=== PATIENT | female | born 1990 | race Two or more races ===

== ENCOUNTER 2019-08-26 17:54 | Emergency (ER) | payer MEDICAID ==
[~2019-08-26] VITALS: Ht 157.5 cm; Wt 54.4 kg
[2019-08-26] MEDS ORDERED: NKM (18:06)
[2019-08-26 18:08] VITALS: BP 147/84
[2019-08-26 19:01] LABS: APPEARANCE,URINE CLEAR; BILIRUBIN, URINE NEGATIVE (NEGATIVE); COLOR,URINE PALE YELLOW; GLUCOSE, URINE (UA) NEGATIVE (NEGATIVE); KETONES,URINE NEGATIVE (NEGATIVE); LEUKOCYTE ESTERASE ,URINE 2+ (NEGATIVE); NITRITE,URINE NEGATIVE (NEGATIVE); PH,URINE 7 (4.5-8.0); PROTEIN,URINE NEGATIVE (NEGATIVE); UROBILINOGEN,URINE NORMAL MG/DL (0.0-1.0)
[2019-08-26] MEDS ORDERED: traMADol 50mg tab ORAL ONE (19:30)
--- NOTE | 2019-08-26 19:39 | Emergency Room Report ---
History of Present Illness General Chief Complaint: Lower Back Pain or Injury Source: Patient Present Illness HPI 28-year-old female presents to the emergency department complaining of 10 out of 10 severity low back pain upon awakening 5 days ago. Patient reports that the pain was progressive and today it is at its maximum. 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 Patient is also complaining of increased urinary frequency x2 days. She denies hematuria, dysuria or urgency. Patient denies suspicion of . Patient denies abdominal pain or tenderness, nausea, vomiting, fevers, chills. Patient denies radiation of her low back pain. She denies recent spinal procedures or history of cancer. Denies numbness tingling or loss of sensation or gross motor movements of the extremities, incontinence of bowel or bladder. Denies CP, Palpitations, LOC, AMS, dizziness, Changes in Vision, weakness or a sudden severe headache. She reports that she has not taken any [id number] pain medications. Allergies: Coded Allergies: No Known Allergies (Unverified , 08/26/19) Patient History Past Medical History: see triage record Past Surgical History: none Pertinent Family History: none Last Menstrual Period: Aug 09, 2019 Now: No Reviewed Nursing Documentation: PMH: Agreed; PSxH: Agreed Nursing Documentation-PMH Past Medical History: No Stated History Review of Systems All Other Systems: negative except mentioned in HPI Physical Exam Vital Signs Date Time Temp Pulse Resp B/P (MAP) Pulse Ox O2 Delivery O2 Flow Rate FiO2 08/26/19 18:02 98.2 73 18 147/84 (105) 100 Room Air Sp02 EP Interpretation: reviewed, normal General Appearance: no apparent distress, alert, GCS 15, non-toxic Head: normocephalic, atraumatic Eyes: bilateral eye normal inspection, bilateral eye PERRL ENT: hearing grossly normal, normal voice Neck: full range of motion Respiratory: lungs clear, normal breath sounds, speaking full sentences Cardiovascular #1: regular rate, rhythm Gastrointestinal: normal bowel sounds, non tender, soft, non-distended, no guarding Rectal: deferred Genitourinary: normal inspection, no CVA tenderness Musculoskeletal: gait/station normal, normal range of motion, tender - Mild Tenderness to palpation to the right paraspinal muscles of the lumbar back without midline tenderness. Neurologic: alert, oriented x3, responsive, motor strength/tone normal, sensory intact, speech normal, grossly normal Psychiatric: judgement/insight normal Skin: no rash, normal color Lymphatic: no adenopathy Medical Decision Making PA Attestation Dr. Rodríguez is my supervising Physician whom patient management has been discussed with. Diagnostic Impression: Primary Impression: Low back pain Qualified Codes: M54.5 - Low back pain Additional Impression: Urinary tract infection Qualified Codes: N30.00 - Acute cystitis without hematuria ER Course 28-year-old female presents to the emergency department complaining of 10 out of 10 severity low back pain upon awakening 5 days ago. Patient reports that the pain was progressive and today it is at its maximum. 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 Patient is also complaining of increased urinary frequency x2 days. She denies hematuria, dysuria or urgency. Patient denies suspicion of . Patient denies abdominal pain or tenderness, nausea, vomiting, fevers, chills. Patient denies radiation of her low back pain. She denies recent spinal procedures or history of cancer. Denies numbness tingling or loss of sensation or gross motor movements of the extremities, incontinence of bowel or bladder. Denies CP, Palpitations, LOC, AMS, dizziness, Changes in Vision, weakness or a sudden severe headache. She reports that she has not taken any mcnq-lcs-amnqoqi pain medications. Ddx considered: epidural abscess, fracture, sprain/strain, meningitis, spinal chord injury, sciatica, cauda equina, UTI, Pyelonephritis, renal calculi just to name a few. Vital signs reviewed and are WNL during ED visit. Pt. is afebrile with no signs of infection No new symptoms, and denies recent trauma. No saddle anesthesia noted, Pt. denies incontinence Neurovascular is intact ROM is limited due to pain * Mild Tenderness to palpation to the right paraspinal muscles of the lumbar back without midline tenderness. ORDERS: - UA: Few bacteria with increased inflammatory markers suspicious for urinary tract infection. no emergent imaging warranted at this time.- no spinous process/bony ttp. no focal neurological deficits. Pt. ambulatory. INTERVENTIONS: - Lidoderm TP - IBU -Tramadol DISCHARGE: At this time pt. is stable for d/c to home. Will provide printed patient care instructions, and any necessary prescriptions. Care plan and follow up instructions have been discussed with the patient prior to discharge. Labs Test 08/26/19 18:40 Urine Color Pale yellow Urine Appearance Clear Urine pH 7 (4.5-8.0) Urine Specific [place] 1.015 (1.005-1.035) Urine Protein Negative (NEGATIVE) Urine Glucose (UA) Negative (NEGATIVE) Urine Ketones Negative (NEGATIVE) Urine Blood Negative (NEGATIVE) Urine Nitrite Negative (NEGATIVE) Urine Bilirubin Negative (NEGATIVE) Urine Urobilinogen Normal MG/DL (0.0-1.0) Urine Leukocyte Esterase 2+ (NEGATIVE) Urine RBC 0 /HPF (0 - 2) Urine WBC 10-15 /HPF (0 - 2) Urine Squamous Epithelial Cells Few /LPF (NONE/OCC) Urine Bacteria Few /HPF (NONE) Last Vital Signs Date Time Temp Pulse Resp B/P (MAP) Pulse Ox O2 Delivery O2 Flow Rate FiO2 08/26/19 18:08 98.2 70 18 147/84 100 Room Air Disposition: HOME, SELF-CARE Condition: Stable Scripts Nitrofurantoin Monohyd/M-Cryst* (MACROBID 100 MG*) 100 Mg Capsule 100 MG ORAL EVERY 12 HOURS for 7 Days, #14 CAP Prov: Ava Calderon 08/26/19 Lidocaine Patch* (Lidoderm Patch*) 1 Each Adh..patch 1 PATCH TOPIC DAILY, #30 PATCH 0 Refills Patch(es) may remain in place for up to 12 hours in any 24-hour period. Prov: Ava Calderon 08/26/19 Methocarbamol* (ROBAXIN-750*) 750 Mg Tablet 750 MG PO QID, #28 TAB 0 Refills Prov: Ava Calderon 08/26/19 Departure Forms: Return to Work Return to Work Date: Aug 30, 2019 Work Restrictions: No Heavy Lifting, No Prolonged Standing Other Restrictions: May return Sooner if Symptoms have resolved. Return to Full Activity: Sep 02, 2019 Patient Instructions: Back Pain, Adult, Klgy-ib-Edvb, Sciatica, Vfom-bi-Djxb, Urinary Tract Infection, Orfy-xb-Ogtd Additional Instructions: Take medications as directed. Follow up with a Primary Care Provider in 3-5 days, even if your symptoms have resolved. --Please review list of primary care clinics, if you do not already have a primary care provider Return sooner to ED if new symptoms occur, or current symptoms become worse. Do not drink alcohol, drive, or operate heavy machinery while taking Robaxin ( Muscle Relaxers) as this may cause drowsiness. - Please note that this Emergency Department Report was dictated using [employer] superintendent technology software, occasionally this can lead to erroneous entry secondary to interpretation by the dictation equipment. Ava Calderon Aug 26, 2019 19:39
[2019-08-26] MEDS ORDERED: NITROFURANTOIN100 M2 ORAL (19:44)
[2019-08-26] MEDS ORDERED: LIDODERM700 M1 TOPIC (19:44)
[2019-08-26] MEDS ORDERED: ROBAXIN-750750 MG PO (19:44)
[2019-08-26 19:57] VITALS: BP 132/69
== END 2019-08-26 19:57 | disposition home or self-care (01) ==
LOC: EMR 18:30
DX: M54.5 Low back pain (principal); N30.00 Acute cystitis without hematuria
CPT/HCPCS: 81003; 87086; Z7502; 99283